=== PATIENT | male | born 1945 | race Caucasian/White ===

== ENCOUNTER → 2016-07-16 | Outpatient (CLI) | payer MEDICARE, BC ==
[~2016-07-16] MED LIST: ACCUPRIL PO; ALTACE PO; ALTACE10 M1 PO; AMBIEN CR PO; AMBIEN PO; AMBIEN10 MG PO; AMOXICILLIN PO; ANEXSIA 5/325 M1 TA1 PO; ASPIR-TRIN325 MG PO; ASPIRIN PO; ASPIRIN81 M2 PO; AVALIDE 300-251 TAB PO; AVAPRO PO; BAYER ASPIRIN325 M1 PO; BYETTA10 MCG/0.0 INJ; CLOPIDOGREL75 MG PO; CRESTOR PO; DECADRON PO; DETROL LA PO; DURAGESIC TOP; DURAGESIC12 MCG ID; DURAGESIC25 MCG TD; FENTANYL1 EAC1 TD; FENTANYL1 EAC3 TD; FLAGYL PO; FLONASE16 GM; GLUCOPHAGE500 M1 PO; GLUCOVANCE 5/501 TA1 PO; GLUCOVANCE 5/501 TA2 PO; HYDROCORTISONE; KEFLEX500 M1 PO; LANOXIN PO; LANTUS SOLOSTAR3 ML SQ; LANTUS100 U/ML INJ; LANTUS100 U/ML SUBQ; LANTUS100 UNITS/ SUBQ; LEVAQUIN PO; LEVEMIR100 UNITS/ SUBQ; LIPITOR40 MG PO; METFORMIN HCL500 M1 PO; MIRALAX255 GM PO; NITROGYLCERIN SUBLINGUAL; NORVASC PO; NORVASC10 MG PO; NOVOLOG100 U/ML SUBQ; NOVOLOG100 UNITS/ INJ; NUCYNTA50 MG PO; PAXIL PO; PAXIL10 MG PO; PERCOCET 10/3251 TAB PO; PERCOCET5/325 PO; PREDNISONE10 MG/DOSE PO; PRILOSEC20 MG PO; PROTONIX PO; RAMIPRIL10 MG PO; REVLIMID; REVLIMID PO; REVLIMID25 MG PO; TAGAMET PO; VITAMIN D PO; ZEBETA5 MG PO; ZOFRAN PO; [UNRECOGNIZED DRUG - OTHER] PO
--- NOTE | ~2016-07-16 | XA51 ---
[facility] A Service of [facility] RADIOLOGY TEXT RESULTS PATIENT: CLAIRE SANDOVAL LOCATION: [facility] : 47 UNIT #: [id number] AGE: [address]: Xavier Castro MD SEX: M ORDER DR: [id number] [place] [id number] [facility]. [place], [place] [address] [id number] O MR#: [id number] Acc #: [id number] NAME: CLAIRE SANDOVAL : 1945 SEX: M STUDY DATE/TIME: 07/16/2016 9:03 UNIT: [facility] ROOM: STUDY DESCRIPTION: XA BX Bone Marrow Attending Physician: Xavier Castro M.D. Ordering Physician: Xavier Castro M.D. Primary Care Physician: No Primary Care Physician MEDICAL IMAGING REPORT This report is preliminary unless electronic signature is present EXAM Fluoroscopically-guided bone marrow biopsy and aspiration. INDICATIONS 70-year-old male with multiple myeloma. MEDICATIONS IV Versed and Fentanyl were utilized for conscious sedation. Conscious sedation time was monitored by appropriately credentialed Radiology nursing staff. FLUOROSCOPY TIME Fluoro time 0.3 minutes. Reference air kerma is 47 mGy. TECHNIQUE Risks, benefits and alternatives to the procedure were discussed with the patient, and informed consent was obtained. In the procedure room, a time-out was performed, confirming correct patient and procedure. All elements of maximum sterile-barrier technique were utilized according to guidelines appropriate for the procedure. Patient was placed in the prone position. Skin overlying the posterior right iliac crest was prepped and draped in the usual sterile fashion. 1% lidocaine was utilized to anesthetize the skin and underlying subcutaneous tissues. Next under fluoroscopic guidance, an 11-gauge bone access needle was advanced in the marrow space, and a bone marrow aspirate followed by core biopsy was obtained. The needle was removed and a sterile dressing was applied. No immediate complications. IMPRESSION [facility] A Service [facility] RADIOLOGY TEXT RESULTS PATIENT: CLAIRE SANDOVAL LOCATION: [facility] : 47 UNIT #: [id number] AGE: [address]: Xavier Castro MD SEX: M ORDER DR: Technically successful fluoroscopically-guided bone marrow biopsy and aspiration. Dictated by... Steven Barreto M.D. THIS IS AN ELECTRONICALLY VERIFIED REPORT Steven Barreto M.D. at 07/17/2016 8:08 AM LILIAN/ken TD: 07/16/2016 18:08 JOB #: [id number] MEDICAL IMAGING REPORT COPY
[2016-07-16 08:15] LABS: HEMATOCRIT 36.6 % (38.0-50.0); HEMOGLOBIN 12.5 gm/dL (13.0-16.0); MEAN CELL VOLUME 85.7 FL (83-96); MEAN CORPUSCULAR HEMOGLOBIN 29.4 PG (28-34); MEAN CORPUSCULAR HGB CONC 34.3 g/dL (30-36); MEAN PLATELET VOLUME 7.5 FL (6.5-11.5); RED BLOOD COUNT 4.26 X10e (3.90-5.60); RED CELL DISTRIBUTION WIDTH 14.2 % (11.0-15.5); WHITE BLOOD COUNT 8.7 X10e3 (4.0-10.5)
[2016-07-16 08:33] LABS: PARTIAL THROMBOPLASTIN TIME 24.3 SECONDS (23.5-31.3); PROTHROMBIN TIME (PATIENT) 10.6 SECONDS (9.6-11.5)
== END | disposition home or self-care (01) ==
LOC: CIVR 07:52
PROVIDERS: Internal Medicine Hematology & Oncology
PROC: 07DR3ZX Extraction of Iliac Bone Marrow, Percutaneous Approach, Diagnostic (ICD-10-PCS; principal; 2016-07-16)
PROC: 079T3ZX Drainage of Bone Marrow, Percutaneous Approach, Diagnostic (ICD-10-PCS; 2016-07-16)
DX: C90.00 Multiple myeloma not having achieved remission (principal); M54.5 Low back pain; F34.1 Dysthymic disorder; C64.2 Malignant neoplasm of left kidney, except renal pelvis; E10.9 Type 1 diabetes mellitus without complications; G47.30 Sleep apnea, unspecified; I10 Essential (primary) hypertension; F32.9 Major depressive disorder, single episode, unspecified; Z87.891 Personal history of nicotine dependence; Z85.53 Personal history of malignant neoplasm of renal pelvis; Z85.46 Personal history of malignant neoplasm of prostate; Z80.42 Family history of malignant neoplasm of prostate; Z80.51 Family history of malignant neoplasm of kidney; Z98.890 Other specified postprocedural states; Z88.8 Allergy status to other drugs, medicaments and biological substances; Z91.040 Latex allergy status; Z91.09 Other allergy status, other than to drugs and biological substances
CPT/HCPCS: 38221; G0364; 36415; 77002; 85027; 85610; 85730; 88182; 88184; 88185; 88305; 88311; 88323; 88341; 88342; 99144; 99152; 99153; J2250; J3010

== ENCOUNTER → 2016-09-18 | Outpatient (CLI) | payer MEDICARE, BC ==
--- NOTE | ~2016-09-18 | CT4 ---
[facility] A Service [facility] RADIOLOGY TEXT RESULTS PATIENT: CLAIRE SANDOVAL LOCATION: [facility] : 47 UNIT #: [id number] AGE: [address]: Xavier Castro MD SEX: M ORDER DR: [id number] [facility] [address] [place], [place] [address] [id number] O MR#: [id number] Acc #: [id number] NAME: CLAIRE SANDVOAL : 1945 SEX: M STUDY DATE/TIME: 09/18/2016 11:23 UNIT: [facility] ROOM: STUDY DESCRIPTION: CT Abd and Pelv Wo Cont Attending Physician: Xavier Castro M.D. Referring Physician: Xavier Castro M.D. Ordering Physician: Xavier Castro M.D. Primary Care Physician: Petey Lee M.D. MEDICAL IMAGING REPORT This report is preliminary unless electronic signature is present EXAM CT abdomen and pelvis without contrast INDICATION Palpable mass in the left side of the abdomen. Left-sided flank pain for the past month with abdominal cramping. PROCEDURE Unenhanced CT of the abdomen and pelvis. TECHNIQUE This CT exam was performed with one or more of the following radiation dose reduction techniques: automatic exposure control, adjustment of mA and/or kV according to patient size, and iterative reconstruction. COMPARISON 04/29/2016 FINDINGS Included lung bases are clear. The liver, spleen, adrenal glands, pancreas unremarkable. Previous cholecystectomy. Common duct measures 1.8 cm. No radiodense calculus. It is similar to the previous study. Partial nephrectomy change at the lower pole of the left kidney. There is a 2.0 mm nonobstructing calculus in the lower pole of the left kidney. No radiodense ureteral calculus or hydronephrosis. The bowel loops are nondilated. PELVIS WITHOUT CONTRAST: No pelvic mass or fluid. Previous prostatectomy. No aggressive appearing bone lesion. IMPRESSION 1. No acute findings. [facility] A Service [facility] RADIOLOGY TEXT RESULTS PATIENT: CLAIRE SANDOVAL LOCATION: [facility] #: [id number] : 47 UNIT #: [id number] AGE: [address]: Xavier Castro MD SEX: M ORDER DR: 2. Previous partial nephrectomy change in the lower pole of the left kidney. No abnormal tissue or evidence for metastatic disease. 3. Nonobstructing calculus in the lower pole of the left kidney. Dictated by... Aditya Gooden M.D. THIS IS AN ELECTRONICALLY VERIFIED REPORT Aditya Gooden M.D. at 09/22/2016 8:21 AM Francisco TD: 09/19/2016 08:08 JOB #: [id number] MEDICAL IMAGING REPORT Page 1 of 1 COPY
== END | disposition home or self-care (01) ==
LOC: CCAT 09:12
DX: R22.2 Localized swelling, mass and lump, trunk (principal); N20.0 Calculus of kidney; Z90.5 Acquired absence of kidney
CPT/HCPCS: 74176

== ENCOUNTER 2016-10-02 18:58 | Inpatient (IN) | payer MEDICARE, BC ==
--- NOTE | ~2016-10-02 | CT24 ---
[facility] A Service of [facility] RADIOLOGY TEXT RESULTS PATIENT: CLAIRE SANDOVAL LOCATION: [facility] 329-01 : 47 UNIT #: [id number] AGE: [address]: Horacio Salomon MD SEX: M ORDER DR: [id number] [facility] [address] [place], [place] [address] [id number] I MR#: [id number] Acc #: [id number] NAME: CLAIRE SANDOVAL. : 1945 SEX: M STUDY DATE/TIME: 10/02/2016 20:22 UNIT: [address] ROOM: [facility] STUDY DESCRIPTION: CT Angio Neck Stroke Attending Physician: Megan Lemus M.D. Ordering Physician: Alverto Paniagua D.O. Primary Care Physician: Petey Lee M.D. MEDICAL IMAGING REPORT This report is preliminary unless electronic signature is present EXAM CT angiogram neck Please see CTA head for results. Dictated by... Rodrigue Whitaker M.D. THIS IS AN ELECTRONICALLY VERIFIED REPORT Rodrigue Whitaker M.D. at 10/03/2016 11:32 PM DFL/jonnathanr TD: 10/03/2016 02:08 JOB #: [id number] MEDICAL IMAGING REPORT Page 1 of 1 COPY
--- NOTE | ~2016-10-02 | CR72 ---
[facility] A Service of [facility] RADIOLOGY TEXT RESULTS PATIENT: CLAIRE SANDOVAL LOCATION: [facility] 329-01 : 47 UNIT #: [id number] AGE: [address]: Horacio Salomon MD SEX: M ORDER DR: [id number] [facility] [address] [place], [place] [address] [id number] I MR#: [id number] Acc #: [id number] NAME: CLAIRE SANDOVAL. : 1945 SEX: M STUDY DATE/TIME: 10/02/2016 20:34 UNIT: [address] ROOM: [facility] STUDY DESCRIPTION: CR Chest Single View Portable Attending Physician: Megan Lemus M.D. Ordering Physician: Alverto Paniagua D.O. Primary Care Physician: Petey Lee M.D. MEDICAL IMAGING REPORT This report is preliminary unless electronic signature is present EXAM Portable chest HISTORY Chest pain and dizzy today. No injury. FINDINGS Mild cardiac enlargement. Normal pulmonary vascularity. Calcified mediastinal and right hilar nodes and small calcified granuloma in the right mid lung. No airspace infiltrates or effusions. Mild right mid thoracic curve. IMPRESSION No acute findings. Mild cardiac enlargement. No active disease in the lungs. Dictated by... Rodrigue Whitaker M.D. THIS IS AN ELECTRONICALLY VERIFIED REPORT Rodrigue Whitaker M.D. at 10/03/2016 11:31 PM LAURA/christa TD: 10/03/2016 02:04 JOB #: [id number] MEDICAL IMAGING REPORT Page 1 of 1 COPY
--- NOTE | ~2016-10-02 | MR17 ---
[facility] A Service of [facility] RADIOLOGY TEXT RESULTS PATIENT: CLAIRE SANDOVAL LOCATION: [facility] 329 : 47 UNIT #: [id number] AGE: [address]: Horacio Salomon MD SEX: M ORDER DR: [id number] [facility] [address] [place], [place] [address] [id number] I MR#: [id number] Acc #: [id number] NAME: CLAIRE SANDOVAL : 1945 SEX: M STUDY DATE/TIME: 10/03/2016 10:34 UNIT: [address] ROOM: [facility] STUDY DESCRIPTION: MR Brain WWo Contrast Attending Physician: Horacio Salomon M.D. Ordering Physician: Megan Lemus M.D. Primary Care Physician: Petey Lee M.D. MRI CENTER REPORT This report is preliminary unless electronic signature is present. EXAM Brain MRI with and without contrast HISTORY Accelerated hypertension with TIA on 10/02/2016. Sudden onset of vertigo at that time which was positional. Vertigo has resolved. Patient complains of headache today. TECHNIQUE Multiplanar imaging brain was performed with and without contrast. 20 mL of MultiHance was used. FINDINGS On diffusion-weighted images, there is no evidence of abnormal restricted diffusion to suggest a recent infarct. The routine brain images show atrophy with mild chronic ischemic changes in the periventricular deep white matter bilaterally. Mild chronic ischemic changes are also seen in the mid-jeff. There is no evidence of mass lesion, hemorrhage or edema. After contrast administration, no abnormal enhancement is seen. Extraaxial structures are remarkable for mild mucosal thickening in the frontal sinuses and sphenoid sinuses. IMPRESSION Atrophy with mild chronic ischemic changes around the ventricles. Mild chronic inflammatory sinus disease. Otherwise, negative. No evidence of recent infarct. Dictated by... Silvano Aragon M.D. THIS IS AN ELECTRONICALLY VERIFIED REPORT [facility] A Service [facility] RADIOLOGY TEXT RESULTS PATIENT: CLAIRE SANDOVAL LOCATION: [facility] : 47 UNIT #: [id number] AGE: [address]: Horacio Salomon MD SEX: M ORDER DR: Silvano Aragon M.D. at 10/04/2016 9:52 AM RLF/pcl TD: 10/03/2016 22:25 JOB #: [id number] MRI CENTER REPORT Page 1 of 1 COPY
--- NOTE | ~2016-10-02 | DS ---
Unit #: [id number] #: [id number] Patient: CLAIRE SANDOVAL [id number] [address] [place], [place] [address] [id number] I MR#: [id number] NAME: CLAIRE SANDOVAL. ROOM: 329 Age: 71 Sex: M Admission Date: 10/03/2016 : 1945 Discharge Date: 10/04/2016 Attending Physician: Horacio Salomon M.D. Primary Care Physician: Petey Lee M.D. DISCHARGE SUMMARY DISCHARGE DIAGNOSES 1. Transient ischemic attack. 2. Hypertension. 3. Sinus bradycardia. 4. Type 2 diabetes. 5. Chronic kidney disease, status post partial nephrectomy for renal cell carcinoma. 6. History of prostate cancer. 7. Hyperlipidemia. 8. Multiple myeloma. HOSPITAL COURSE The patient is a 71-year-old male who had presented to [facility] Emergency Department after an episode of dizziness. It was acute in onset and began at 3 p.m. It was associated with headache and staggering gait. He did have some nausea but no vomiting. He said the symptoms lasted for approximately five hours. In the emergency department, the patient was noted to have a blood pressure of 238/100 and heart rate in the 40s and 50s. The patient underwent workup for posterior circulation stroke and CTA was noted to show a high-grade short segment of stenosis in the right ATTORNEY in the proximal P2 segment. MRI revealed no acute stroke however. Therefore, it was felt that the patient likely had a transient ischemic attack secondary to his stenosis. The patient was started on Plavix as a result. The patient's hypertension was significant at the time of presentation. He has remained in the 150 to 190 range. This is felt to be due to discontinuation of the patient's beta etienne (due to his dizziness) and initiation of normal saline at 100 mL/hour which was thought to have expanded his intravascular volume and led to these pressures. At the time of discharge, his bisoprolol has been reinitiated, and I have started the patient on Norvasc as well. He should follow up with his primary care provider. He states he has an appointment in approximately nine days. If his pressures remain greater than 180, I have asked that he return to the emergency department. Given resolution of his symptoms, the patient is being discharged home at this time. DISCHARGE MEDICATIONS 1. Paxil 20 mg daily. 2. Glucophage 500 mg p.o. b.i.d. Unit #: [id number] #: [id number] Patient: CLAIRE SANDOVAL 3. Ambien 10 mg p.o. at bedtime. 4. Zebeta 5 mg p.o. daily. 5. Ramipril 10 mg p.o. b.i.d. 6. Lipitor 40 mg p.o. at bedtime. 7. Levemir 24 units subcutaneous b.i.d. 8. Aspirin 81 mg daily. 9. Plavix 75 mg daily. 10. Fentanyl 75 mcg transdermally q.48 hours. 11. Percocet 10/325 at 1-2 tabs p.o. q.4 hours p.r.n. 12. Norvasc 10 mg p.o. daily. FOLLOWUP As mentioned above, the patient should follow up with his primary care provider at his previously scheduled appointment. In addition, if his blood pressures remain above 180, he should follow up in the emergency department before his primary care provider appointment if he cannot get one scheduled sooner. Dictated by... Sabine Wild/maurizio TD: 10/06/2016 14:44 JOB #: [id number] DISCHARGE SUMMARY Page 1 of 1 X Horacio Salomon MD X DISCHARGE SUMMARY
--- NOTE | ~2016-10-02 | CT17 ---
[facility] A Service of [facility] RADIOLOGY TEXT RESULTS PATIENT: CLAIRE SANDOVAL LOCATION: [facility] 329-01 : 47 UNIT #: [id number] AGE: [address]: Horacio Salomon MD SEX: M ORDER DR: [id number] [facility] [address] [place], [place] [address] [id number] I MR#: [id number] Acc #: [id number] NAME: CLAIRE SANDOVAL. : 1945 SEX: M STUDY DATE/TIME: 10/02/2016 20:22 [facility] ROOM: [facility] STUDY DESCRIPTION: CT Angio Head Attending Physician: Megan Lemus M.D. Ordering Physician: Alverto Paniagua D.O. Primary Care Physician: Petey Lee M.D. MEDICAL IMAGING REPORT This report is preliminary unless electronic signature is present EXAM CT angiogram head neck with IV contrast. HISTORY Headache and dizzy today. TECHNIQUE This CT exam was performed with one or more of the following radiation dose reduction techniques: automatic control, adjustment of mA and/or kV according to patient size, and iterative reconstruction. FINDINGS IV contrast enhanced CT angiogram of the head and neck was performed with 3-D reconstructions. CT ANGIOGRAM NECK: Mild focal fibrotic scarring or linear atelectasis in the anterior right upper lobe. The common carotid arteries and carotid bulbs and cervical internal carotid arteries are widely patent bilaterally with 0% stenosis by NASCET criteria. Both vertebral arteries are widely patent, dominant on the right. CT ANGIOGRAM BRAIN: Mild calcified atherosclerotic plaque in the cavernous carotid arteries bilaterally. The intracranial vertebral arteries and basilar artery are widely patent. The anterior cerebral and middle cerebral arteries are widely patent bilaterally and the left posterior cerebral artery is widely patent with left posterior communicating artery and hypoplastic left P1 segment. There is a high-grade short segment stenosis of the right posterior cerebral artery in the proximal P2 segment. No aneurysm or vascular malformation. IMPRESSION 1. 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 [facility] A Service of [facility] RADIOLOGY TEXT RESULTS PATIENT: CLAIRE SANDOVAL LOCATION: [facility] 329-01 : 47 UNIT #: [id number] AGE: [address]: Horacio Salomon MD SEX: M ORDER DR: 2. No additional intracranial arterial stenosis or major vessel occlusion. 3. Incidental left posterior communicating artery with hypoplastic left P1 segment. 4. Normal CT angiogram neck. 0% cervical carotid artery stenosis by NASCET criteria. 5. Both vertebral arteries are patent with no stenosis and the right vertebral artery is dominant. Dictated by... Rodrigue Whitaker M.D. THIS IS AN ELECTRONICALLY VERIFIED REPORT Rodrigue Whitaker M.D. at 10/03/2016 11:31 PM LAURA/alia TD: 10/03/2016 02:06 JOB #: [id number] MEDICAL IMAGING REPORT Page 1 of 1 COPY
--- NOTE | ~2016-10-02 | DS ---
Unit #: [id number] #: [id number] Patient: CLAIRE SANDOVAL [id number] [place] [address] [id number] I MR#: [id number] NAME: CLAIRE SANDOVAL ROOM: [facility] Age: 71 Sex: M Admission Date: 10/03/2016 : 1945 Discharge Date: 10/04/2016 Attending Physician: Horacio Salomon M.D. Primary Care Physician: Petey Lee M.D. DISCHARGE SUMMARY ADDENDUM It was ultimately felt that the patient likely suffered from vertigo rather than transient ischemic attack, and documentation of transient ischemic attack "above" in discharge diagnoses was an error and, rather, should read vertigo. Dictated by... Sabine Wild/mine TD: 11/05/2016 10:06 JOB #: [id number] DISCHARGE SUMMARY Page 1 of 1 X Horacio Salomon MD X DISCHARGE SUMMARY
--- NOTE | ~2016-10-02 | EKG ---
PATIENT: CLAIRE SANDOVAL UNIT #: [id number] Ventricular Rate: 48 BPM Atrial Rate: 48 BPM P-R Interval: 150 ms QRS Duration: 84 ms Q-T Interval: 506 ms QTC Calculation(Bezet): 452 ms P Knox: 52 degrees Calculated R Knox: -5 degrees Calculated T Knox: 10 degrees Diagnosis Line: Sinus bradycardia Diagnosis Line: Otherwise normal ECG Diagnosis Line: When compared with ECG of 30-NOV-2014 14:41, Diagnosis Line: No significant change was found Diagnosis Line: Confirmed by GABBY SMART MD ([id number]) on 10/03/2016 Diagnosis Line: 8:07:21 PM INTERPRETING MD: BERRY BRAN
--- NOTE | ~2016-10-02 | HP ---
Unit #: [id number] #: [id number] Patient: CLAIRE SANDOVAL [id number] [address] [address] [id number] I MR#: [id number] NAME: CLAIRE SANDOVAL. ROOM: 329 Age: 71 Sex: M Admission Date: 10/03/2016 : 1945 Attending Physician: Megan Lemus M.D. Primary Care Physician: Petey Lee M.D. HISTORY AND PHYSICAL CHIEF COMPLAINT Vertigo and accelerated hypertension. HISTORY This pleasant, 71-year-old male with hypertension, AODM, multiple myeloma, and chronic kidney disease is admitted for episode of vertigo. Patient states that he was well until 3:00 p.m. yesterday afternoon. He developed a sudden episode of vertigo with a mild headache and had difficulty walking due to a staggered gait. He did feel nauseous with the above. Denied any other neurologic symptoms. His symptoms lasted for about five hours. He was noted to have an elevated blood pressure and bradycardia and brought to this emergency department where his heart rates were in the 40s to 50s. Initial blood pressure was 238/100. A stat head CT was negative. A CTA of the head and neck showed a high-grade short segment stenosis of the right COMPUTER TECHNOLOGIST, proximal P2 segment. Case was discussed both with neurology and the stroke service. It was recommended that Plavix and Lipitor be added to the patient's aspirin and his blood pressure to run on the higher side. At this time, he is feeling back to baseline. He states that his vertigo is worse with movement of his head. Denies any respiratory symptoms or ear symptoms with the above. PAST MEDICAL HISTORY 1. AODM with peripheral neuropathy. 2. Multiple myeloma treated with chemotherapy and followed by Dr. Mani Perry. 3. Chronic kidney disease. 4. Hypertension. 5. Previous cardiac catheterization reportedly negative. LVH noted. 6. Bilateral renal cell CA, status post bilateral partial nephrectomies. 7. Prostate cancer, status post prostatectomy. 8. Osteonecrosis of the right mandible. 9. Depression. 10. History of polyps in the colon, which were snared. 11. EGD revealing gastritis. 12. Cholecystectomy. 13. Appendectomy. 14. Back surgery. 15. Skin cancer excised. ALLERGIES To bee stings. Intolerant to Medrol Dosepak and latex. HOME MEDICATIONS Unit #: [id number] #: [id number] Patient: CLAIRE SANDOVAL 1. Ramipril 10 mg b.i.d. 2. Zebeta 5 mg daily. 3. Percocet 10/325 one to two tablets q.4 hours as needed. 4. Ambien 10 mg q.h.s. 5. Glucophage 500 mg b.i.d. 6. Paxil 20 mg daily. 7. Fentanyl 75 mcg every 48 hours. 8. Levemir 24 units subcu. b.i.d. 9. Aspirin 325 mg daily. FAMILY HISTORY Diabetes mellitus and CAD. SOCIAL HISTORY The patient lives with his . Stopped smoking 40 years ago. Does not drink alcohol. REVIEW OF SYSTEMS Notable for episode of dizziness, worse with turning the head; nausea; staggered gait; multiple myeloma; prostate cancer; renal cell CA; skin cancer; hypertension; diabetes; osteonecrosis of the mandible; depression; gastritis; polyps in the colon; and abovementioned surgeries. All other systems were reviewed and are negative. PHYSICAL EXAMINATION GENERAL APPEARANCE: Very pleasant, 71-year-old male currently in no acute distress. VITAL SIGNS: Temperature 97.9, pulse 53, respirations 10, initial blood pressure 238/100 and current blood pressure is 157/100, and O2 saturation 92% on room air. HEENT: Eyes: PERRLA. Extraocular muscles are intact. Pharynx is benign. TMs are clear. NECK: Supple without adenopathy, thyromegaly, or carotid bruits. CHEST: Clear. CARDIAC: Normal S1 and S2 without S3, S4, or murmur. ABDOMEN: Bowels sounds are present. No hepatosplenomegaly, tenderness, or masses. EXTREMITIES: Without C, C, or E. Pedal pulses are present. No ulcers on the feet. NEUROLOGIC: Patient is awake, alert, and oriented. His cranial nerves are intact. He has +5 out of 5 strength throughout. Normal rapid alternating movements. Normal xzpvif-er-epmr. Negative pronator drift. Normal udse-yg-qfli. He was able to ambulate without assistance. DIAGNOSTIC STUDIES LABORATORY: Admission labs: Hematocrit 38.2 and normal white count, platelet count, and coags. SMA-12: Glucose 146 and total protein 9.3. Cardiac markers are negative. IMAGING: Chest x-ray: Mild cardiomegaly. Head CT: Mild atrophy. CTA of the head and neck show high-grade short segment stenosis of the right COMPUTER TECHNOLOGIST, proximal P2 segment. The carotid and vertebral arteries are patent. CARDIOVASCULAR: EKG shows sinus bradycardia, rate 48. Unit #: [id number] #: [id number] Patient: CLAIRE SANDOVAL ASSESSMENT 1. Episode of vertigo, now improved, with staggered gait and nausea, but no other neurologic symptoms. This was worse with movement of the head. This may represent peripheral vertigo as opposed to a TIA. There was, however, a short segment of high-grade stenosis of the right COMPUTER TECHNOLOGIST P2 segment. Case was discussed with neurology and the stroke team. 2. Accelerated hypertension, now improved on its own. 3. Sinus bradycardia on Zebeta. 4. AODM. 5. Multiple myeloma. 6. Chronic kidney disease, status post bilateral partial nephrectomies for renal cell CA. 7. Status post prostatectomy for prostate cancer. PLANS 1. Case was discussed with neurology and stroke team. It was recommended that Plavix and Lipitor be added to aspirin and a MRI scan be performed in the morning. 2. MRI in the morning. 3. SCDs for DVT prophylaxis. 4. Sliding scale insulin and hold metformin. 5. Give IV fluids following the contrast patient received tonight and recheck labs in the morning. 6. Check lipid profile. 7. Stroke service said to let patient's blood pressure run on the higher side. 8. Will hold Zebeta for now given sinus bradycardia. May need to add Norvasc instead. Dictated by Sabine Gutierrez/ainsley TD: 10/03/2016 05:26 JOB #: [id number] HISTORY AND PHYSICAL Page 1 of 1 X Megan Lemus MD HISTORY AND PHYSICAL
--- NOTE | ~2016-10-02 | CO ---
Unit #: [id number] #: [id number] Patient: CLAIRE SANDOVAL [id number] [facility] [address] [facility]. [place] [id number] MR#: [id number] NAME: CLAIRE SANDOVAL ROOM: 329 Age: 71 Sex: M Admission Date: 10/03/2016 : 1945 Attending Physician: Horacio Salomon M.D. Primary Care Physician: Petey Lee M.D. Consultation Date: 10/03/2016 CONSULTATION REPORT PRIMARY CARE PHYSICIAN Petey Lee M.D. REASON FOR CONSULT Rule out TIA. PATIENT IDENTIFICATION This is a 71-year-old, right-handed, male, evaluated in room 329 at [facility]. SOURCE OF INFORMATION Obtained from the patient as well as from the medical record. HISTORY OF PRESENT ILLNESS This is a very pleasant 71-year-old, right-handed, male with a past medical history of multiple myeloma, hypertension, angina, diabetes mellitus, type 2, CKD, other multiple cancers, who presented to [facility] with complaints of vertigo of sudden onset that lasted about 5 hours, from 3:00 p.m. to 8:00 p.m. yesterday. He states that he was in his usual state of health on the day of admission until about 3:00 p.m. in the afternoon. He states that he was sitting on his couch, watching TV. Whenever he got up, he suddenly felt as though the room is spinning. He reports some mild headache and he reports that he had some difficulty walking because the room was spinning around him. He complains of associated nausea without vomiting, though he felt as though he was going to vomit multiple times. He states it was worse with standing and position change of his head and better whenever he was sitting still. He denies having any double vision, loss of vision, amaurosis fugax, focal facial, arm or leg weakness or paresthesia, dropping anything, trouble holding on to anything, speech or swallowing difficulty or loss of consciousness or loss of awareness. Symptoms resolved several hours later, around 8:00 or 8:30. After he got to the hospital, he states he was essentially back to his baseline with the exception of having mild headache. He states that his headache was never severe. Upon arrival to the ER, he had a sinus bradycardia. His initial blood pressure was reported as 238/100, however, with repeat evaluations of his blood pressure, he had no significant elevation and he did not receive any intensive blood pressure medication and it seemed to resolve spontaneously, though he had one abnormally high reading. He had a CT scan done in the ER that was negative for any acute findings in the brain that showed mild generalized cerebral cortical atrophy and mild paranasal sinus mucosal thickening. He had a CT angiogram of the head and neck done as well in the ER, which shows an area of high-grade short segment stenosis in the right posterior cerebral artery and the proximal P2 Unit #: [id number] #: [id number] Patient: CLAIRE SANDOVAL P segment with no additional intracranial arterial stenosis or major vessel occlusion with incidental left posterior communicating artery with hypoplastic left P1 segment. Otherwise normal CT angiogram of the neck with 0% cervical carotid artery stenosis by NASCET criteria and both vertebral arteries were patent with no stenosis and the right vertebral artery is dominant. He was given aspirin as well as a dose of Plavix in the ER. He was admitted for further workup and evaluation of vertigo and abnormal CT angiogram as well as elevated blood pressure, which apparently resolved spontaneously. The patient states he is back to baseline and denies any focal neurologic deficits. He states he does have a mild headache, but reports that he is essentially in his baseline otherwise. He denies any other exacerbating or alleviating factors or any other associated symptoms, any recent illness or injury, change in weight or routine or change in medications. He states that he has been seeing his PCP as well as his oncologist frequently for treatment lately and reports blood pressure has been well controlled as an outpatient. PAST MEDICAL HISTORY 1. Diabetes mellitus, type 2, with diabetic peripheral neuropathy. 2. Multiple myeloma, treated with chemotherapy and followed by Dr. Mani Perry. 3. Chronic kidney disease. 4. Hypertension. 5. History of CAD. 6. History of cardiac catheterization that were reportedly negative. 7. Bilateral renal cell carcinoma, status post bilateral partial nephrectomies. 8. Prostate cancer, status post prostatectomy. 9. Osteonecrosis of the right mandible. 10. Depression. 11. Polyps in the colon, which were snared. 12. EGD revealed no gastritis. 13. Cholecystectomy. 14. Appendectomy. 15. Back surgery. 16. Excision of skin cancer. 17. He denies prior history of stroke, TIA or other neurologic disease. ALLERGIES 1. Bee stings. 2. Intolerant to Medrol Dosepak as well as latex. HOME MEDICATIONS Per med rec include ramipril 10 mg p.o. b.i.d., Zebeta 5 mg p.o. daily, Percocet 10/325 one to two tabs p.o. q.4 hours p.r.n. pain, Ambien 10 mg p.o. q.h.s., Glucophage 500 mg p.o. b.i.d., paroxetine 20 mg p.o. daily, fentanyl 75 mcg TD q.48 hours, Levemir insulin 24 units subcu b.i.d. breakfast and at bedtime, aspirin 81 mg p.o. daily. FAMILY HISTORY Positive for diabetes and CAD. SOCIAL HISTORY The patient is , lives with his . He is a reformed smoker. He stopped 40 years ago. He denies alcohol use or illicit drug use. REVIEW OF SYSTEMS 14-point review of systems was done. Pertinent positives are as discussed Unit #: [id number] #: [id number] Patient: CLAIRE SANDOVAL above, otherwise negative. PHYSICAL EXAMINATION VITAL SIGNS: Temperature 98.2, he has been afebrile, pulse 56, respirations 18, blood pressure 168/92, oxygen saturation 96%, height 5 feet 10 inches, weight 225 pounds, BMI 32. NEUROLOGIC: He is currently awake, alert, and oriented to person, place, and time as well as events. No right or left confusion. No finger agnosia. No aphasia, dysarthria, or apraxia. Cranial nerve exam; demonstrates full becker of vision. Eyes are conjugate without ptosis or nystagmus. Extraocular movements are intact. Sensation of face and scalp is intact. Strength of the muscles of facial expression is intact. Hearing is intact to finger rub and conversation. Tongue is midline. Uvula is midline. Palate elevation is normal. Head turning and shoulder shrug are unremarkable. Neck is supple. Motor exam; demonstrates normal bulk and tone. Strength is equal, 5/5, in all extremities. Sensory exam intact. Proximally, he has some difficulty distally in the feet differentiating soft touch and pinprick sensation. Otherwise unremarkable. Gait is normal. Romberg negative. Reflexes unable to elicit. Toes are equivocal. Coordination unremarkable. DIAGNOSTIC STUDIES IMAGING STUDIES: Please see above for CT, CT angiogram, MRI of the brain, full report is pending. No certain diffusion seen, consistent with acute ischemia, radiology report pending. LABORATORY RESULTS: TSH 1.47. Sodium 139, potassium 5.3, chloride 107, CO2 of 28, glucose 100, BUN 23, creatinine 1.0, estimated GFR 55.7, calcium 9.3. Cholesterol 195, triglycerides 134, LDL 131, HDL 37. CK 96, troponin less than 0.03. White blood cell count 7.8, hemoglobin 12.5, hematocrit 37.5, and platelet count 207. Initial troponin less than 0.05. Initial white count 8.9, PT 10.5, INR 1.0, PTT 24. IMPRESSION 1. Sudden onset of vertigo, rule out central etiology. No evidence of acute ischemic stroke on MRI. Full dictated reports and results pending. Questionable vestibular dysfunction. 2. hypertension with one isolated elevated blood pressure that resolved spontaneously. 3. Right posterior cerebral artery stenosis on CT angiogram. 4. Sinus bradycardia. PLAN MRI of the brain is pending. No focal findings currently. He is on aspirin and Plavix as well as Lipitor with elevated cholesterol. 2D echo is pending. Further recommendations to be made pending workup and further clinical course with PT, OT evaluation and recommendations. Please call for any questions or issues. We thank you very much for allowing us to assist in care of this patient. Dictated by... Aline Brown A.P.R.N. Unit #: [id number] #: [id number] Patient: CLAIRE SANDOVAL BUCK/augusto TD: 10/04/2016 08:27 JOB #: [id number] CONSULTATION REPORT Page 1 of 1 X Aline Brown [employer] X CONSULTATION REPORT
--- NOTE | ~2016-10-02 | CT72 ---
[facility] A Service of [facility] RADIOLOGY TEXT RESULTS PATIENT: CLAIRE SANDOVAL LOCATION: [facility] 329-01 : [birth year] UNIT #: [id number] AGE: [address]: Horacio Salomon MD SEX: M ORDER DR: [id number] [facility] [address] [facility]. [place], [place] [address] [id number] MR#: [id number] Acc #: [id number] NAME: CLAIRE SANDOVAL. : 1945 SEX: M STUDY DATE/TIME: 10/02/2016 20:18 UNIT: CEDOF ROOM: 92[address] STUDY DESCRIPTION: CT Head Wo Contrast Stroke Attending Physician: Megan Lemus M.D. Ordering Physician: Alverto Paniagua D.O. Primary Care Physician: Petey Lee M.D. MEDICAL IMAGING REPORT This report is preliminary unless electronic signature is present EXAM CT of brain without contrast. HISTORY Headache and dizzy today. TECHNIQUE This CT exam was performed with one or more of the following radiation dose reduction techniques: automatic exposure control, adjustment of mA and/or kV according to patient size, and iterative reconstruction. FINDINGS CT of brain without contrast demonstrates no intracranial hemorrhage, mass or edema. No midline shift or ventricular dilatation or extraaxial fluid collection. Mild generalized bilateral cerebral cortical atrophy. Mucosal thickening in the frontal sinuses and ethmoid air cells bilaterally and minimal fluid in the sphenoid sinus. IMPRESSION No acute findings in the brain. Mild generalized cerebral cortical atrophy. Mild paranasal sinus mucosal thickening. Dictated by... Rodrigeu Whitaker M.D. THIS IS AN ELECTRONICALLY VERIFIED REPORT Rodrigue Whitaker M.D. at 10/03/2016 11:30 PM LAURA/augustina TD: 10/03/2016 01:48 JOB #: [id number] [facility] A Service [facility] RADIOLOGY TEXT RESULTS PATIENT: CLAIRE SANDOVAL LOCATION: [facility] 329-01 : [birth year] UNIT #: [id number] AGE: [address]: Horacio Salomon MD SEX: M ORDER DR: MEDICAL IMAGING REPORT Page 1 of 1 COPY
[~2016-10-02 18:58] MED LIST changes: -ASPIRIN81 M2 PO; -CLOPIDOGREL75 MG PO; -LIPITOR40 MG PO; -NORVASC10 MG PO
[2016-10-02 20:03] LABS: POC - CKMB 1.8 ng/mL (0.0-7.9); POC - TROPONIN <0.05 ng/mL (<=0.05)
[2016-10-02 20:35] LABS: BASOPHIL# 0.1 X10e3 (0-0.3); BASOPHIL% 0.9 % (0-2.5); EOSINOPHIL# 0.4 X10e3 (0-0.7); EOSINOPHIL% 4.3 % (0.0-7.0); HEMATOCRIT 38.2 % (38.0-50.0); HEMOGLOBIN 12.7 gm/dL (13.0-16.0); LYMPHOCYTE# 1.2 X10e3 (1.0-3.5); LYMPHOCYTE% 13.4 % (17.0-45.0); MEAN CELL VOLUME 86.9 FL (83-96); MEAN CORPUSCULAR HEMOGLOBIN 28.9 PG (28-34); MEAN CORPUSCULAR HGB CONC 33.3 g/dL (30-36); MEAN PLATELET VOLUME 8.1 FL (6.5-11.5); MONOCYTE# 0.6 X10e3 (0-1.0); NEUTROPHIL# 6.6 X10e3 (1.5-7.1); NEUTROPHIL% 74.4 % (40-75); PLATELET COUNT 206 X10e3 (140-420); WHITE BLOOD COUNT 8.9 X10e3 (4.0-10.5)
[2016-10-02 20:36] LABS: DIFF IND NO
[2016-10-02 20:47] LABS: PROTHROMBIN TIME (PATIENT) 10.5 SECONDS (9.6-11.5)
[2016-10-02 20:57] LABS: ALBUMIN SERUM 3.9 g/dL (3.5-5.0); BILIRUBIN, DIRECT 0.1 mg/dL (0.0-0.2); BILIRUBIN,INDIRECT 0.8 mg/dL (0.0-0.9); BILIRUBIN,TOTAL 0.9 mg/dL (0.2-2.0); BUN/CREATININE RATIO 19.16; CALCIUM SERUM 9.2 mg/dL (8.4-10.2); CREATININE SERUM 1.2 mg/dL (0.6-1.4); GLOM FILT RATE Estimated 61.3 mL/min (>60); POTASSIUM 4.9 mmol/L (3.5-5.1); PROTEIN TOTAL SERUM 9.3 g/dL (6.0-8.3)
[2016-10-02 21:01] LABS: POC - GFR >60.0 mL/min (>60)
[2016-10-02] MEDS ORDERED: ASPIRIN81 M2 PO (21:13)
[2016-10-02 23:42] LABS: POC - CKMB 2.1 ng/mL (0.0-7.9); POC - TROPONIN <0.05 ng/mL (<=0.05)
[2016-10-03 09:06] LABS: HEMATOCRIT 37.5 % (38.0-50.0); HEMOGLOBIN 12.5 gm/dL (13.0-16.0); MEAN CELL VOLUME 86.4 FL (83-96); MEAN CORPUSCULAR HEMOGLOBIN 28.7 PG (28-34); MEAN CORPUSCULAR HGB CONC 33.2 g/dL (30-36); MEAN PLATELET VOLUME 7.9 FL (6.5-11.5); RED BLOOD COUNT 4.34 X10e (3.90-5.60); RED CELL DISTRIBUTION WIDTH 13.9 % (11.0-15.5); WHITE BLOOD COUNT 7.8 X10e3 (4.0-10.5)
[2016-10-03 11:14] LABS: BUN/CREATININE RATIO 17.69; CALCIUM SERUM 9.2 mg/dL (8.4-10.2); CREATININE SERUM 1.3 mg/dL (0.6-1.4); GLOM FILT RATE Estimated 55.7 mL/min (>60); POTASSIUM 5.3 mmol/L (3.5-5.1)
[2016-10-03 11:46] LABS: %MB 2.6 % (0.0-4.0); MB 2.5 ng/ml
[2016-10-04 06:01] LABS: BASOPHIL# 0.1 X10e3 (0-0.3); BASOPHIL% 0.7 % (0-2.5); EOSINOPHIL# 0.2 X10e3 (0-0.7); EOSINOPHIL% 2.9 % (0.0-7.0); HEMATOCRIT 36.1 % (38.0-50.0); HEMOGLOBIN 12.1 gm/dL (13.0-16.0); LYMPHOCYTE# 1.1 X10e3 (1.0-3.5); LYMPHOCYTE% 13.5 % (17.0-45.0); MEAN CELL VOLUME 85.9 FL (83-96); MEAN CORPUSCULAR HEMOGLOBIN 28.8 PG (28-34); MEAN CORPUSCULAR HGB CONC 33.6 g/dL (30-36); MEAN PLATELET VOLUME 8.3 FL (6.5-11.5); MONOCYTE# 0.7 X10e3 (0-1.0); NEUTROPHIL# 6.1 X10e3 (1.5-7.1); NEUTROPHIL% 74.9 % (40-75); PLATELET COUNT 202 X10e3 (140-420); RED CELL DISTRIBUTION WIDTH 13.8 % (11.0-15.5); WHITE BLOOD COUNT 8.1 X10e3 (4.0-10.5)
[2016-10-04 06:08] LABS: DIFF IND NO
[2016-10-04 06:39] LABS: BUN/CREATININE RATIO 17.27; CREATININE SERUM 1.1 mg/dL (0.6-1.4); GLOM FILT RATE Estimated 68.1 mL/min (>60); MAGNESIUM 1.8 mg/dL (1.6-3.0); POTASSIUM 4.2 mmol/L (3.5-5.1)
[2016-10-04] MEDS ORDERED: LIPITOR40 MG PO (13:45)
[2016-10-04] MEDS ORDERED: NORVASC10 MG PO (13:46)
[2016-10-04] MEDS ORDERED: CLOPIDOGREL75 MG PO (13:46)
== END 2016-10-04 15:13 | disposition home or self-care (01) | DRG 149 ==
LOC: CED 18:58 → CEDOF 10-03 00:07 → C3A PCU 10-03 01:55 → CEDOF 10-03 01:55 → C3A PCU 10-03 06:34
PROVIDERS: Emergency Medicine; Internal Medicine
PROC: B24BYZZ Ultrasonography of Heart with Aorta using Other Contrast (ICD-10-PCS; principal; 2016-10-03)
DX: R42 Dizziness and giddiness (principal); C90.00 Multiple myeloma not having achieved remission; E11.22 Type 2 diabetes mellitus with diabetic chronic kidney disease; M87.88 Other osteonecrosis, other site; I10 Essential (primary) hypertension; R00.1 Bradycardia, unspecified; E11.9 Type 2 diabetes mellitus without complications; I12.9 Hypertensive chronic kidney disease with stage 1 through stage 4 chronic kidney disease, or unspecified chronic kidney disease; N18.9 Chronic kidney disease, unspecified; Z85.528 Personal history of other malignant neoplasm of kidney; Z85.46 Personal history of malignant neoplasm of prostate; E78.5 Hyperlipidemia, unspecified; Z79.82 Long term (current) use of aspirin; E11.42 Type 2 diabetes mellitus with diabetic polyneuropathy; I25.10 Atherosclerotic heart disease of native coronary artery without angina pectoris; F32.9 Major depressive disorder, single episode, unspecified; Z85.828 Personal history of other malignant neoplasm of skin; Z88.8 Allergy status to other drugs, medicaments and biological substances; Z91.030 Bee allergy status; Z91.040 Latex allergy status; Z87.891 Personal history of nicotine dependence
CPT/HCPCS: 36415; 70450; 70496; 70498; 70553; 71010; 80048; 80061; 80076; 82550; 82553; 82565; 82947; 83735; 84443; 84484; 85025; 85027; 85610; 85730; 93005; 97165; 99285; A9577; C8929; G8987-GO; G8988-GO; G8989-GO; J0360; J1815; J2060; J2405; Q9967